=== PATIENT | female | born 1950 | race Caucasian/White ===

== ENCOUNTER 2019-02-03 10:49 | Outpatient (CLI) | payer OTHER | END 2019-02-03 10:55 | disposition home or self-care (01) | LOC: SONOGRAMA 10:49 | DX: E04.1 Nontoxic single thyroid nodule (principal) ==

== ENCOUNTER 2020-07-14 11:16 | Outpatient (CLI) | payer OTHER | END 2020-07-14 11:21 | disposition home or self-care (01) | LOC: SONOGRAMA 11:16 | PROVIDERS: ATTEND Pathology Anatomic Pathology & Clinical Pathology | DX: D34 Benign neoplasm of thyroid gland (principal); E04.2 Nontoxic multinodular goiter; E07.89 Other specified disorders of thyroid; E04.1 Nontoxic single thyroid nodule ==